=== PATIENT | male | born 1965 | race Caucasian/White ===

== ENCOUNTER 2017-10-04 07:30 | Inpatient (IN) | payer OTHER ==
[~2017-10-04] VITALS: Ht 193 cm; Wt 110.2 kg
[2017-10-04] MEDS ORDERED: METROPROLOL PO (09:03)
[2017-10-04] MEDS ORDERED: LISINOPRIL40 MG PO (09:03)
[2017-10-04] MEDS ORDERED: AMILODIPINE PO (09:04)
[2017-10-04] MEDS ORDERED: TAMS0.4C PO (09:04)
[2017-10-04] MEDS ORDERED: GABAPENTIN300 MG PO (09:05)
[2017-10-13] MEDS ORDERED: GABAPENTIN800 MG PO (12:33)
[2017-10-13] MEDS ORDERED: DOCUSATE SODIU100 MG PO (12:33)
[2017-10-13] MEDS ORDERED: CLONAZEPAM1 MG PO (12:34)
[2017-10-13] MEDS ORDERED: PERCOCET 5-3251 EACH PO (12:34)
[2017-10-13] MEDS ORDERED: AMOX-CLAV 875-1 EACH PO (12:34)
== END 2017-10-13 14:23 | DRG 520 ==
LOC: PED 10-12 05:00 → O/R 10-12 05:00 → SURH 10-12 07:00 → PED 10-12 10:12
PROVIDERS: Orthopaedic Surgery Orthopaedic Surgery of the Spine
PROC: 0ST20ZZ Resection of Lumbar Vertebral Disc, Open Approach (ICD-10-PCS; 2017-10-12)
PROC: 00NY0ZZ Release Lumbar Spinal Cord, Open Approach (ICD-10-PCS; principal; 2017-10-12 07:00)
DX: M48.061 Spinal stenosis, lumbar region without neurogenic claudication (principal); M48.07 Spinal stenosis, lumbosacral region; I10 Essential (primary) hypertension